=== PATIENT | female | born 1990 | race Caucasian/White ===

== ENCOUNTER 2016-12-12 13:24 | Inpatient (IN) | payer OTHER ==
[~2016-12-12] VITALS: Wt 68.0 kg
[~2016-12-12 13:24] MED LIST: Dexamethasone 4 mg/mL Inj ONE; Glycopyrrolate 0.2 mg/mL 5 mL Inj ONE; MetoCLOpramide 5 mg/mL 2 mL Inj ONE; Morphine PF 1 mg/mL 10 mL Inj ONE; Neostigmine 1 mg/mL 5 mL Inj ONE; Oxytocin 10 Unit/mL Inj ONE; Succinylcholine Chloride 20 mg/mL 5 mL Inj ONE
[2016-12-12 16:44] LABS: Mean Corpuscular Hemoglobin 32.2 pg (27.0-35.0); Mean Corpuscular Volume 91.7 fL (81-100)
[2016-12-12] MEDS ORDERED: Lactated Ringer's 1,000 ML IV ONE (18:22)
[2016-12-12] MEDS ORDERED: Lactated Ringer's 1,000 ML IV PRN (18:59)
--- NOTE | 2016-12-12 18:59 | PCM.HPANE ---
Patient Data Date of Service: Dec 12, 2016 (4078) Surgeon Admitting Provider:Jermaine De Los Santos MD Attending Provider:Jermaine De Los Santos MD Primary Care Physician:Doroteo Aguila MD Other Provider:Lana Keane Anesthesia Reason for Visit Term Labor Ht/WT & BMI Body Mass Index Allergies Coded Allergies: hydromorphone HCl (Verified Adverse Reaction, Severe, HALLUCINATION, ) Diabetes History Hx Diabetes?: No History Cardiovascular History: Denies:: Congestive Heart Failure Hypertension Respiratory History: Denies:: Tuberculosis Hx Surgeries?: No Hx Diabetes: No Hx Alcohol Use: NoHx Substance Use: No Smoking Status: Never Smoker Stop/Bang Risk Assessment Category Category 1A: Patient has history of documented sleep apnea, and HAS NOT received any narcotic, sedative or anesthesia administration during this stay. Category 1B: Patient has history of documented sleep apnea, and HAS received any narcotic , sedative or anesthesia administration during this stay Category 2: Patient has SUSPECTED Obstructive Sleep Apnea, and HAS received any narcotic , sedative or anesthesia administration during this stay. Category 3: Patient has SUSPECTED Obstructive Sleep Apnea and HAS NOT received narcotic, sedative or anesthesia administration during this stay. Category 4: Outpatient in Procedural Areas with known sleep apnea or who screen positive for High Risk via the STOP/BANG questionnaire. Exam Exam General Appearance: Alert Additional Information unable to perform full assessment due to emergency Meds/Labs/Diagnostics Labs Test 12/12/16 16:25 12/12/16 16:30 White Blood Count 11.1th/mm3 (3.8-10.1) Red Blood Count 4.10mil/mm3 (3.90-5.20) Hemoglobin 13.2g/dL (12.0-15.6) Hematocrit 37.6% (35.0-46.0) Mean Corpuscular Volume 91.7fL (81-100) Mean Corpuscular Hemoglobin 32.2pg (27.0-35.0) Mean Corpuscular Hemoglobin Concent 35.1% (32.0-37.0) Red Cell Distribution Width 12.4% (12.3-15.4) Platelet Count 230bil/L (150-400) Hematology Comments Blood Urea Nitrogen 7mg/dL (6-20) Creatinine 0.36mg/dL (0.57-1.00) Uric Acid 4.3mg/dL (2.6-7.2) Aspartate Amino Transf (AST/SGOT) 30U/L (0-50) Alanine Aminotransferase (ALT/SGPT) 37U/L (0-32) Urine Random Creatinine 15mg/dL (16-392) Urine Random Total Protein 4mg/dL (0-15) Urine Protein/Creatinine Ratio 0.30 Plan Impression Patient chart reviewed, patient interviewed and anesthestic plan with risks, benefits, and alternatives discussed, and informed consent obtained. ASA Physical Status: ASA2 Plus Emergency ( distress) Anesthetic Plan: GA Bene/Risks/Altern/Consents: No (unable to obtain due to emergency) HP Complete Prior to Induction: No Other emergency procedure Flip Eldridge MD Dec 12, 2016 18:59
[2016-12-12] MEDS ORDERED: Atropine 0.4 mg/mL Inj IV PRN (19:00)
[2016-12-12] MEDS ORDERED: MetoCLOpramide 5 mg/mL 2 mL Inj IVPUSH PRN ×2 (19:00→19:20)
[2016-12-12] MEDS ORDERED: Ondansetron 2 mg/mL 2 mL Inj IVPUSH PRN ×3 (19:00→20:30)
[2016-12-12] MEDS ORDERED: Dexamethasone 4 mg/mL Inj IVPUSH PRN ×2 (19:00→19:20)
[2016-12-12] MEDS ORDERED: fentaNYL-PF 50 mCg/mL 2 mL Inj IVPUSH PRN ×2 (19:00→19:20)
[2016-12-12] MEDS ORDERED: EPHEDrine Sulfate 50 mg/mL Inj IVPUSH PRN ×2 (19:00→19:20)
[2016-12-12] MEDS ORDERED: Lactated Ringer's 500 ML IV PRN (19:16)
[2016-12-12] MEDS ORDERED: Lactated Ringer's 1,000 ML IV SCH (19:16)
[2016-12-12] MEDS ORDERED: Phenylephrine 10,000 mCg/mL Inj IVPUSH PRN (19:20)
[2016-12-12] MEDS: Lactated Ringer's 1,000 ML IV SCH (19:35)
[2016-12-12] MEDS ORDERED: Oxytocin 30 Units/500 mL LR 30 UNITS in IV Premix 1 EACH IV PRN (19:35)
[2016-12-12] MEDS ORDERED: Carboprost 250 mCg/mL Inj IM PRN (19:35)
[2016-12-12] MEDS ORDERED: LANOlin HPA 7 Gm Ointment TOPICAL PRN (19:35)
[2016-12-12] MEDS ORDERED: Hemorrhage Kit, Post Partum XX ONE (19:35)
[2016-12-12] MEDS ORDERED: Methylergonovine 0.2 mg/mL Inj IM PRN (19:35)
[2016-12-12] MEDS ORDERED: Oxytocin 10 Unit/mL Inj IM PRN (19:35)
[2016-12-12] MEDS ORDERED: Acetaminophen IV 1,000 MG in IV Premix 1 EACH IV PRN ×2 (19:35→21:35)
[2016-12-12] MEDS ORDERED: Sodium Chloride LOK Flush 10 mL Syringe IVFLUSH PRN (19:35)
--- NOTE | 2016-12-12 19:43 | PCM.ANEP1 ---
Post Anesthesia Phase 1 PACU Phase 1 Assessment Date of Service: Dec 12, 2016 (2685) Anesthetic Administered: GA Level of Alertness: Awake, talking MARIANO's with Equal Strength: Yes Pain: Yes Nausea or Vomiting: Yes Oxygen Delivery: Non-Rebreather Mask Dermatome Level: Full Sensation Flip Eldridge MD Dec 12, 2016 19:42
--- NOTE | 2016-12-12 20:05 | PCM.ANEP2 ---
Post Anesthesia Evaluation ASA/CMS Post Anesthesia VS in Patient's Normal Range?: Yes Resp Stable; Airway Patent?: Yes CV Function & Hydration Stable: Yes Mental Status Recovered?: Yes Pain control Satisfactory?: Yes N/V Control Satisfactory?: Yes Flip Eldridge MD Dec 12, 2016 20:05
[2016-12-12] MEDS ORDERED: Morphine PCA 1 mg/mL 30 mL Inj IV PRN (20:30)
--- NOTE | 2016-12-12 23:28 | OP ---
[address] [address] OPERATIVE REPORT PATIENT: BRANDON BOSE : 1990 MR#: [id number] ADMIT: 12/12/2016 JOB ID: [id number] DATE OF SURGERY: 12/12/2016 PROCEDURE: Urgent primary low transverse section. PREOPERATIVE DIAGNOSIS(ES): 1. Intrauterine , 39 weeks and 1 day. 2. -induced hypertension. 3. Nonreassuring heart rate. POSTOPERATIVE DIAGNOSIS(ES): 1. Intrauterine , 39 weeks and 1 day. 2. -induced hypertension. 3. Oligohydramnios. 4. bradycardia status post emergent low transverse section. SURGEON: Jermaine De Los Santos MD. SHOE REPAIRMAN: Michael Dumont MD. ANESTHESIA: General. ESTIMATED BLOOD LOSS: 500 mL. ESTIMATED URINE OUTPUT: 200 mL. FLUIDS: 1 L of Lactated Ringer's. COMPLICATIONS: None. INDICATIONS OF THE PROCEDURE: The patient is a 26-year-old, 1, para 1 now, who came to Labor and Delivery with complaint of contractions. On exam, she was 3 cm dilated, 80% effaced, -2 station. Intact membranes. The patient's blood pressure was borderline high, her labs were sent. Protein/creatinine ratio came back abnormal at 0.3. Initial decision was made to proceed with admission and induction of labor. The patient had artificial rupture of membranes with very scanty amniotic fluid produced. There was mild meconium. Shortly after membrane rupture, intrauterine pressure catheter was placed and internal monitoring was placed as well. Patient developed variable decelerations that were prolonged, decision was made to proceed with emergent primary low transverse delivery. PROCEDURE: The patient was brought to the operating room, where she underwent general anesthesia without difficulty. The patient was placed in the dorsal lithotomy position with leftward tilt. She was prepped and draped in the usual surgical fashion. There was no time for a time-out. She received intraoperative antibiotics. A Pfannenstiel skin incision was made with a scalpel and carried down to the underlying layer of rectus muscle fascia with the scalpel. The rectus muscle fascia was incised in the midline with the scalpel and extended laterally. The incision was extended laterally using Crump scissors. The upper aspect of the incision was grasped with two Ricardo clamps and the rectus muscle fascia was from the underlying rectus muscle with Crump scissors. In a similar fashion, the lower aspect of the incision was grasped with two Ricardo clamps and the rectus muscle fascia was from the underlying rectus muscle with Crump scissors. The rectus muscles were in the midline. The peritoneum was identified, entered, and extended laterally. Bladder blade was introduced. With a scalpel, lower segment transverse uterine incision was made. Bladder blade was removed and male was delivered atraumatically with weight 2657 g, scores 7 at one minute and 9 at five minutes. The was handed off to the waiting respiratory therapist. Cord blood for arterial blood gas was sent. The placenta was sent to Pathology. After the uterus was exteriorized and placenta was removed, it was cleared from all the blood clots and debris using dry laparotomy sponge. The uterine incision was repaired with two layers of 0 Monocryl. The pelvis was irrigated with warm normal saline and the uterus was repositioned in the pelvis. Good hemostasis was reassured. The fascia was closed with 0-Vicryl. X-ray was performed verifying normal findings. The skin was closed with 4-0 Monocryl in subcuticular fashion. Dermabond glue was applied. Steri-Strips were applied. Hemostatic dressing was applied. The patient was repositioned back into the supine position. She tolerated the procedure well and was transferred to the recovery room in stable condition.
--- NOTE | 2016-12-12 23:44 | HP ---
[address] [address] HISTORY AND PHYSICAL PATIENT: BRANDON BOSE : 1990 MR#: [id number] ADMIT: 12/12/2016 JOB ID: [id number] HISTORY OF PRESENT ILLNESS: The patient is a 26-year-old, 2, para 1, with a history of one prior spontaneous vaginal delivery four years ago, comes to Labor and Delivery with complaint of contractions that started this morning. The patient's due date is November. She is 39 weeks and 2 days . The patient has regular contractions every five minutes. She was examined at three o'clock and found to be 3 cm dilated, 70% effaced, -2 station. Patient denies vaginal spotting, bleeding or abnormal discharge. care was relatively uncomplicated. LABORATORIES: Were reviewed. She is group B strep negative. Blood group and type all negative. Antibody screen negative. Rubella immune. PAST MEDICAL HISTORY: Noncontributory. Medical history is significant for asthma that is mild, intermittent, controlled with albuterol. OBSTETRICAL HISTORY: One spontaneous vaginal delivery as mentioned above, four years ago at 39 weeks. SOCIAL HISTORY: Patient denies smoking, alcohol, illicit drug use. ALLERGIES: NKDA. PHYSICAL EXAMINATION: Vital signs: Blood pressure 140/85, pulse 72, respiratory rate 18, temperature 36.9. HEENT: PERRLA. Lungs: Clear bilaterally. No adventitious sounds. Abdomen is tender during contractions, nondistended. Extremities: Trace pitting edema. BOTTOM WHEELER exam: Three hours apart, the patient is 3.5 cm, 80% effaced, station -2. Bulging bag of membranes palpable. Vertex presentation. The labs were sent. She has trace protein. Protein creatinine ratio is 0.3. ASSESSMENT AND PLAN: This is a 26-year-old, 2, para 1, at 39 weeks and 2 days with borderline high blood pressure, no other complaints, protein creatinine ratio 0.3. She is being admitted for induction of labor. The different methods of induction were discussed with the patient and informed consent was obtained. The plan is to provide pain management with fentanyl and give her an epidural as necessary. Patient agrees for artificial rupture of membranes and induction with Pitocin. Will anticipate spontaneous vaginal delivery. [facility]
[2016-12-13] MEDS: Lactated Ringer's 1,000 ML IV SCH ×3 (01:16→19:35)
[2016-12-13] MEDS ORDERED: Acetaminophen IV 1,000 MG in IV Premix 1 EACH IV PRN (04:30)
[2016-12-13 06:49] LABS: Mean Corpuscular Hemoglobin 32.5 pg (27.0-35.0); Mean Corpuscular Volume 91.6 fL (81-100)
--- NOTE | 2016-12-13 07:43 | PCM.PNOBPP ---
Subjective Date of Service Dec 13, 2016 Post : Primary Ceserean Delivery Subjective 26yo at 39 weeks 1 day gestation presented for induction of labor due to elevated heart rate. Due to non reassuring heart rate patient was taken for primary emergency cesarian section. Since that time patient continues to have her Restrepo catheter, She is able to ambulate. She is having no vision changes, no epigastric pain, and no headache. She is experiencing some nausea but has not had a meal yet, just crackers. Post control plans are tubal ligation. Lochia: Normal Pain Management: PO pain meds, Good Pain Control Gastrointestinal: Good Appetite Postop Activity: Ambulating Independently Group B Strep Results: Negative Rubella: Immune Blood Type: O RH Type: Negative Labs Laboratory Tests 12/12/16 16:25: Hematology Comments 12/13/16 06:30: White Blood Count 18.1, Red Blood Count 3.69, Hemoglobin 12.0, Hematocrit 33.8, Mean Corpuscular Volume 91.6, Mean Corpuscular Hemoglobin 32.5, Mean Corpuscular Hemoglobin Concent 35.5, Red Cell Distribution Width 12.3, Platelet Count 209 Exam Vital Signs Vital Signs: VS reviewed, stable Exam Abdomen: Fundus firm, Abdomen soft, Abdomen non-tender Extremities: Normal pulses, Edema 1+ Lungs: Clear to Auscultation, Normal Air Movement Heart: Regular Rate/Rhythm, No Murmurs/Rubs/Gallops General: Alert, Oriented X3 OB Post Assessment/Plan Assessment 26yo at 39 weeks 1 day gestation presented for induction of labor due to elevated heart rate. Due to non reassuring heart rate patient was taken for primary emergency cesarian section. Restrepo still in this morning. Pain well controlled with Toradol and Tylenol. Problems: (1) S/P emergency section Plan: Continue post operative care Status: Acute ICD Code: Z98.89 (2) PIH ( induced hypertension) Qualifiers: Trimester: third trimester Qualified Code: O13.3 - Gestational [- induced] hypertension without significant proteinuria, third trimester Plan: Stable at this time, continue to monitor blood pressure and for signs of preeclampsia Status: Acute ICD Code: O13.9 (3) Rh negative, delivered, current hospitalization Plan: Infant Rh status is positive therefore patient needs RhoGAM . Status: Acute ICD Code: O36.0190 Pain Evaluation: Adequate Pain Control Post plan: Continue routine post care, Discharge home tomorrow Plan: Continue normal postoperative care, discontinue Restrepo, RhoGAM to be given . Attending Statement The patient was seen and examined together with Dr. Clifton on 12/13/2016 and I agree with the history, exam and plan as outlined in the note above. / MD ROB Herrera ERIKA R Dec 13, 2016 07:43 Héctor Murray MD Jan 18, 2017 16:31
[2016-12-13] MEDS: oxyCODONE-Acetamin 5-325 mg Tablet PO PRN ×4 (08:10→22:18)
--- NOTE | 2016-12-13 09:50 | DRSVH ---
PROCEDURE: X-RAY ABDOMEN, ONE VIEW ([id number]) INDICATIONS: NO FIRST COUNT TECHNIQUE: One view of the abdomen acquired. COMPARISON: None. FINDINGS: Surgical changes and devices: None. Bowel: Bowel gas pattern is normal. Moderate stool is present. Soft tissues: No suspicious abdominal calcifications. Visualized solid organ contours appear normal in size. Bones: No suspicious bony lesions. IMPRESSION: No definite radiopaque foreign body seen within the abdomen or visualized portions of pel vis. Dictated by: Adair BEAUCHAMP Interpreted: Jane Hernandez MD on 12/13/2016 at 9:49 Transcribed by: MARIVEL on 12/13/2016 at 9:49 Approved by: Jane Hernandez M.D. on 12/13/2016 at 16:14
[2016-12-13] MEDS: hydrOXYzine Pamoate 25 mg Capsule PO PRN ×2 (11:19→18:02)
[2016-12-14] MEDS: hydrOXYzine Pamoate 25 mg Capsule PO PRN (01:11)
[2016-12-14] MEDS: oxyCODONE-Acetamin 5-325 mg Tablet PO PRN ×5 (01:32→19:52)
[2016-12-14] MEDS: Lactated Ringer's 1,000 ML IV SCH ×2 (03:35→11:35)
--- NOTE | 2016-12-14 08:23 | PCM.PNOBPP ---
Subjective Date of Service Dec 14, 2016 Post : Primary Ceserean Delivery Subjective 26-year-old status post induction of labor an emergency postop day 2. Patient doing well this morning, pain still present but under better control with increase of pain medication. Patient ambulating independently. Patient desires permanent control and plans to discuss with insurance company if sterilization or herself is more financially feasible. In the meantime patient plans to use condoms after 6 weeks if procedure has not been performed yet. Lochia: Normal Pain Management: PO pain meds, Good Pain Control Gastrointestinal: Good Appetite Postop Activity: Ambulating Independently Group B Strep Results: Negative Rubella: Immune Blood Type: O RH Type: Negative Labs Laboratory Tests 12/12/16 16:25: Hematology Comments 12/13/16 06:30: White Blood Count 18.1, Red Blood Count 3.69, Hemoglobin 12.0, Hematocrit 33.8, Mean Corpuscular Volume 91.6, Mean Corpuscular Hemoglobin 32.5, Mean Corpuscular Hemoglobin Concent 35.5, Red Cell Distribution Width 12.3, Platelet Count 209 Exam Vital Signs Vital Signs: VS reviewed, stable Exam : Voiding without difficulty Extremities: Normal pulses, Edema 1+ Lungs: Clear to Auscultation, Normal Air Movement Heart: Regular Rate/Rhythm, No Murmurs/Rubs/Gallops General: Alert, Oriented X3 Surgical Wound : Incision General Appearence: Steri Strips, Well Approximated, No Erythemia, No Discharge OB Post Assessment/Plan Assessment 26-year-old status post induction of labor an emergency postop day 2 continues to have some pain, mildly hypotensive this morning with a normal heart rate and no concerning anemia. Problems: (1) S/P emergency section Plan: Continue post operative care Status: Acute ICD Code: Z98.89 (2) PIH ( induced hypertension) Qualifiers: Trimester: third trimester Qualified Code: O13.3 - Gestational [- induced] hypertension without significant proteinuria, third trimester Plan: Stable at this time, continue to monitor blood pressure and for signs of preeclampsia Status: Acute ICD Code: O13.9 (3) Rh negative, delivered, current hospitalization Plan: Rh status is positive therefore patient was given RhoGAM . Status: Acute ICD Code: O36.0190 Pain Evaluation: Adequate Pain Control Post plan: Continue routine post care, Discharge home tomorrow RADHA RIVAS DO Dec 14, 2016 08:23
--- NOTE | 2016-12-14 14:10 | PATH ---
SURGICAL PATHOLOGY Attending Physician:Jermaine De Los Santos MD CASE STATUS: Signed Out PATIENT NAME: BRANDON BOSE PID: [id number] : 1990 DATE COLLECTED:12/12/2016 00:00 SPECIMEN: Placenta CLINICAL HISTORY: A: PLACENTA FINAL DIAGNOSIS: 1.PLACENTA AND MEMBRANES (UMBILICAL CORD ABSENT): 1. PLACENTA: 459 GRAMS, WHICH IS APPROXIMATELY 40TH PERCENTILE FOR 39 WEEKS GESTATION. PATCHY DEPOSITION OF INTERVILLOUS FIBRIN WITHOUT ASSOCIATED INFARCTION. NEGATIVE FOR SIGNIFICANT INFLAMMATION. 2. UMBILICAL CORD: ABSENT. INSERTION SITE IS 7.3 CM FROM THE PLACENTAL EDGE. 3. MEMBRANES: RUPTURED 2.3 CM FROM THE FREE PLACENTAL EDGE. NEGATIVE FOR SIGNIFICANT INFLAMMATION. ICD10 CODE O41.03 GROSS DESCRIPTION: The specimen is received in formalin, labeled with the patient's name and consists of a placenta and includes placental disc (459 g, 20.5 x 17.8 x 2.3 cm) and membranes. The umbilical cord is absent. The membranes are ruptured 2.3 cm from the free edge of the placenta and are semi-translucent. The umbilical cord attachment site is 7.3 cm from the edge of the placenta. The surface is smooth and shiny with no evidence of meconium. The maternal surface is dark maroon with normal cotyledon formation. The placental disc is spongy with no hematomas, infarcts, nodules, masses, or lesions. Section code: (A) edge of placenta with membranes, umbilical cord; (B-D) placenta, 3 full thickness sections. 12/13/16 JM MICRO DESCRIPTION: See diagnosis. ICD-9 CODES: CPT CODES: 1: 86569 Electronically Signed Out Zackery Anguiano MD [facility] [address], [place] [address] Technical component performed at [facility], [facility] [address], [place], [address]
[2016-12-15] MEDS: oxyCODONE-Acetamin 5-325 mg Tablet PO PRN ×4 (00:16→13:07)
[2016-12-15] MEDS ORDERED: OXYC1TAB24 PO (06:42)
[2016-12-15] MEDS ORDERED: DOCU-41 PO (06:42)
[2016-12-15] MEDS ORDERED: IBUP800T28 PO (06:42)
--- NOTE | 2016-12-15 07:29 | PCM.PNOBPP ---
Subjective Date of Service Dec 15, 2016 Post : Primary Ceserean Delivery Subjective 26 yo G2 now P2 who presented to the [facility] with -induced hypertension for induction of labor she subsequently had an emergency due to nonreassuring heart rate. Patient is doing well this morning she is seen in the nursery where she is feeding her baby. Lochia is minimal, pain well controlled with ibuprofen and Percocet. Lochia: Normal Pain Management: PO pain meds, Good Pain Control Gastrointestinal: Good Appetite, Passing Flatus Postop Activity: Ambulating Independently Group B Strep Results: Negative Rubella: Immune Blood Type: O RH Type: Negative Labs Laboratory Tests 12/12/16 16:25: Hematology Comments 12/13/16 06:30: White Blood Count 18.1, Red Blood Count 3.69, Hemoglobin 12.0, Hematocrit 33.8, Mean Corpuscular Volume 91.6, Mean Corpuscular Hemoglobin 32.5, Mean Corpuscular Hemoglobin Concent 35.5, Red Cell Distribution Width 12.3, Platelet Count 209 Exam Vital Signs Vital Signs: VS reviewed, stable Exam Abdomen: Fundus firm : Voiding without difficulty Extremities: Edema 2+ Lungs: Clear to Auscultation, Normal Air Movement Heart: Regular Rate/Rhythm, No Murmurs/Rubs/Gallops General: Alert, Oriented X3 Surgical Wound : Incision General Appearence: Steri Strips, Intact, Well Approximated, Incision Healing, No Erythemia OB Post Assessment/Plan Assessment 26 yo G2 now P2 who presented to the [facility] with -induced hypertension for induction of labor she subsequently had an emergency due to nonreassuring heart rate. Patient is now having good pain control with Percocet and ibuprofen. She is ambulating well and and tolerating a general diet. Bleeding is minimal. Overall meeting postoperative goals. Problems: (1) S/P emergency section Plan: Continue post operative care Status: Acute ICD Code: Z98.89 (2) PIH ( induced hypertension) Qualifiers: Trimester: third trimester Qualified Code: O13.3 - Gestational [- induced] hypertension without significant proteinuria, third trimester Plan: Stable at this time, continue to monitor blood pressure and for signs of preeclampsia Status: Acute ICD Code: O13.9 (3) Rh negative, delivered, current hospitalization Plan: Rh status is positive therefore patient was given RhoGAM . Status: Acute ICD Code: O36.0190 Pain Evaluation: Adequate Pain Control Post plan: Continue routine post care, Discharge to [facility] status Attending Statement Doing well this AM, POD#3, pain is well controlled and meeting all postoperative goals. Hemoglobin is stable, blood pressure is stable. She is s/ p rhogam. Incision c/d/i, fundus firm. Plan to discharge to [facility] status today. RADHA RIVAS DO Dec 15, 2016 06:40 Arlyn Baltazar MD Dec 15, 2016 15:41
[2016-12-15] MEDS: hydrOXYzine Pamoate 25 mg Capsule PO PRN (08:04)
--- NOTE | 2016-12-15 08:35 | PCM.DIOB ---
Obstetrical Disch Instruction Date of Service: Dec 15, 2016 Dates of Hospitalization Date of Hospital Admission Dec 12, 2016 at 17:50 Providers Admitting Physician: Jermaine De Los Santos MD Primary Care Physician: Doroteo Aguila MD Attending Physician: Jermaine De Los Santos MD Discharge Diagnosis Discharge Diagnosis Emergency section Post Operative diagnosis Emergency section Problems: (1) S/P emergency section Plan: Continue post operative care Status: Acute ICD Code: Z98.89 (2) PIH ( induced hypertension) Qualifiers: Trimester: third trimester Qualified Code: O13.3 - Gestational [- induced] hypertension without significant proteinuria, third trimester Plan: Stable at this time, continue to monitor blood pressure and for signs of preeclampsia. This includes stomach pain, vision changes, and headache. Status: Acute ICD Code: O13.9 (3) Rh negative, delivered, current hospitalization Plan: Infant Rh status is positive therefore patient was given RhoGAM . Status: Acute ICD Code: O36.0190 Diet Discharge Diet: No restrictions Activity Discharge Activity-General: Pelvic Rest for 6 weeks, Try not to overdue, Balance rest and activity, No lifting >10 pounds for 4-6 weeks Dressing and Incisional Care Hygiene: May shower, DO NOT soak incision under water, NO bathtub, hot tub or whirlpool Additional Instructions Discharge Instructions Continue to take her vitamin. Do not take more pain medication (Percocet) than is necessary -- less is better. Percocet pills have Tylenol (acetaminophen) in them at 325mg per pill. Do not take Tylenol in addition to your pain medication but should take one or the other. Percocet can give you constipation so you have also been given a prescription for docusate to keep you regular. Be sure to follow up in 2 weeks and then again in 6 weeks at [facility]. Pelvic rest for 6 weeks (nothing per vagina including intercourse, tampons) If you have a fever greater than 100.4, please call [facility]. There is always someone surgeon's assistant to talk to. If you have an increase in bleeding, call [facility]. If you have a lot of bleeding suddenly, especially if you have symptoms of dizziness & weakness with it, get emergency help. When you see [facility] in two weeks, you will be informed of the results of all the labs. If you start experiencing extreme depression, especially if you feel that you are a danger to yourself or your family, seek emergency help. You have been through a lot -- BE SURE TO TAKE CARE OF YOURSELF. Follow Up Plan Follow-up Provider (F9): Jermaine De Los Santos MD Follow-up appointment: Weeks (2) RADHA RIVAS DO Dec 15, 2016 08:35
--- NOTE | 2016-12-15 08:47 | PCM.DC.OB ---
Obstetrical Discharge Summary Date of Service Dec 15, 2016 Date of hospital admission Dec 12, 2016 at 17:50 Date of Discharge: Dec 15, 2016 Providers Admitting Physician: Jermaine De Los Santos MD Primary Care Physician: Doroteo Aguila MD Attending Physician: Jermaine De Los Santos MD Diagnosis at Time of Discharge 1. Status post emergency section 2. Preeclampsia Problems: (1) S/P emergency section Status: Acute ICD Code: Z98.89 (2) PIH ( induced hypertension) Qualifiers: Trimester: third trimester Qualified Code: O13.3 - Gestational [- induced] hypertension without significant proteinuria, third trimester Status: Acute ICD Code: O13.9 (3) Rh negative, delivered, current hospitalization Status: Acute ICD Code: O36.0190 Invasive procedures Emergency section Date of Procedure: Dec 12, 2016 Pathology FINAL DIAGNOSIS: 1.PLACENTA AND MEMBRANES (UMBILICAL CORD ABSENT): 1. PLACENTA: 459 GRAMS, WHICH IS APPROXIMATELY 40TH PERCENTILE FOR 39 WEEKS GESTATION.PATCHY DEPOSITION OF INTERVILLOUS FIBRIN WITHOUT ASSOCIATED INFARCTION. NEGATIVE FOR SIGNIFICANT INFLAMMATION. 2. UMBILICAL CORD: ABSENT. INSERTION SITE IS 7.3 CM FROM THE PLACENTAL EDGE. 3. MEMBRANES: RUPTURED 2.3 CM FROM THE FREE PLACENTAL EDGE. NEGATIVE FOR SIGNIFICANT INFLAMMATION. Zackery Anguiano MD [facility] [address], [place] [address] Brief History and Physical: History on admission: HISTORY OF PRESENT ILLNESS: The patient is a 26-year-old, 2, para 1, with a history of one prior spontaneous vaginal delivery four years ago, comes to Labor and Delivery with complaint of contractions that started this morning. The patient's due date is November. She is 39 weeks and 2 days . The patient has regular contractions every five minutes. She was examined at three o'clock and found to be 3 cm dilated, 70% effaced, -2 station. Patient denies vaginal spotting, bleeding or abnormal discharge. care was relatively uncomplicated. LABORATORIES: Were reviewed. She is group B strep negative. Blood group and type all negative. Antibody screen negative. Rubella immune. PAST MEDICAL HISTORY: Noncontributory. Medical history is significant for asthma that is mild, intermittent, controlled with albuterol. OBSTETRICAL HISTORY: One spontaneous vaginal delivery as mentioned above, four years ago at 39 weeks. SOCIAL HISTORY: Patient denies smoking, alcohol, illicit drug use. ALLERGIES: NKDA. Jermaine De Los Santos MD 12/12/16 2095 Physical exam on day of discharge: Vital signs stable, 1 mildly elevated blood pressure reading 132/81. Well- appearing well-nourished. Heart regular rate and rhythm no murmurs. Lungs clear to auscultation bilaterally with good air movement. Abdomen soft, Fundus firm. Surgical wound well approximated covered with Steri-Strips no drainage or discharge. Edema in lower extremities bilaterally 2+ to the ankle. 1 beat of clonus. Appropriate mood and affect Docusate Sodium (Colace) 100 Mg Capsule 100 MG PO DAILY PRN PRN For Constipation Prescribed by: RADHA RIVAS DO Ibuprofen (Ibuprofen) 800 Mg Tablet 800 MG PO Q6H PRN PRN For Pain Prescribed by: RADHA RIVAS DO oxyCODONE-Acetaminophen 5-325 mg (oxyCODONE-Acetaminophen 5-325 mg) 1 Each Tablet 1-2 TAB PO Q4H PRN PRN For Pain Prescribed by: RADHA RIVAS DO Discharge Medications: 1. Percocet 2. Ibuprofen 3. Colace Disposition Discharge to boarder status as infant is in special care nursery at this time Follow-up plan [facility] in 2 weeks for incision check Discharge Diet: No restrictions Discharge Activity-General: Pelvic Rest for 6 weeks, Try not to overdue, Balance rest and activity, No lifting >15 pounds for 2 weeks Patient instructions Continue to take her vitamin. Do not take more pain medication (Percocet) than is necessary -- less is better. Percocet pills have Tylenol (acetaminophen) in them at 325mg per pill. Do not take Tylenol in addition to your pain medication but should take one or the other. Percocet can give you constipation so you have also been given a prescription for docusate to keep you regular. Be sure to follow up in 2 weeks and then again in 6 weeks at [facility]. Pelvic rest for 6 weeks (nothing per vagina including intercourse, tampons) If you have a fever greater than 100.4, please call [facility]. There is always someone assembler clip on sunglasses to talk to. If you have an increase in bleeding, call [facility]. If you have a lot of bleeding suddenly, especially if you have symptoms of dizziness & weakness with it, get emergency help. When you see [facility] in two weeks, you will be informed of the results of all the labs. If you start experiencing extreme depression, especially if you feel that you are a danger to yourself or your family, seek emergency help. You have been through a lot -- BE SURE TO TAKE CARE OF YOURSELF. RADHA RIVAS DO Dec 15, 2016 08:47
[2016-12-15 09:15] VITALS: BP 123/80; PULSE 63; RESP 18
== END 2016-12-15 13:26 | disposition home or self-care (01) | DRG 765 ==
LOC: FBCO 13:24 → FBC 17:50
PROVIDERS: ADMIT Legal Medicine; ATTEND Legal Medicine
PROC: 10H073Z Insertion of Monitoring Electrode into Products of Conception, Via Natural or Artificial Opening (ICD-10-PCS; 2016-12-12)
PROC: 10907ZC Drainage of Amniotic Fluid, Therapeutic from Products of Conception, Via Natural or Artificial Opening (ICD-10-PCS; 2016-12-12)
PROC: 3E033VJ Introduction of Other Hormone into Peripheral Vein, Percutaneous Approach (ICD-10-PCS; 2016-12-12)
PROC: 10D00Z1 Extraction of Products of Conception, Low, Open Approach (ICD-10-PCS; principal; 2016-12-12 18:26)
DX: O76 Abnormality in fetal heart rate and rhythm complicating labor and delivery (principal); O41.03X0 Oligohydramnios, third trimester, not applicable or unspecified; O36.0130 Maternal care for anti-D [Rh] antibodies, third trimester, not applicable or unspecified; Z37.0 Single live birth; O77.0 Labor and delivery complicated by meconium in amniotic fluid; O13.4 Gestational [pregnancy-induced] hypertension without significant proteinuria, complicating childbirth; Z3A.39 39 weeks gestation of pregnancy